=== PATIENT | female | born 1935 | race Caucasian/White ===

== ENCOUNTER 2018-10-16 00:50 | Emergency (ER) | payer OTHER ==
[~2018-10-16] VITALS: Ht 167.6 cm; Wt 83.9 kg
[2018-10-16 04:38] LABS: Basophils # (auto) 0 uL; Basophils % (auto) 0.3 % (0.0-2.0); Eosinophils # (auto) 0 uL; Eosinophils % (auto) 0.1 % (0.0-7.0); Hematocrit 40.5 % (36.0-46.0); Hemoglobin 13.9 g/dL (12.2-16.2); Lymphocytes # (auto) 0.5 uL; Lymphocytes % (auto) 8.3 % (10.0-50.0); Mean Corpuscular Hemoglobin 31.8 pg (28.0-32.0); Mean Corpuscular Hgb Conc. 34.3 g/dL (32.0-36.0); Mean Corpuscular Volume 92.5 fL (80.0-100.0); Monocytes # (auto) 0.8 uL; Neutrophils # (auto) 4.9 uL; Neutrophils % (auto) 78.3 % (37.0-80.0); Platelet Count (auto) 164 10^3/uL (140-450); Red Blood Cells 4.38 10^6/uL (4.0-5.20); Red Cell Distribution Width 14.1 % (11.8-14.3); White Blood Cell 6.3 10^3/uL (4.4-10.8)
[2018-10-16 04:53] LABS: INR 0.96 (0.9-1.15); Partial Thromboplastin Time 31.1 sec (23.78-33.04); Prothrombin Time 10.3 sec (9.27-12.13)
[2018-10-16 04:55] LABS: Alanine Aminotransferase 36 U/L (13-56); Albumin 3.3 g/dL (3.4-5.0); Anion Gap 7 (5-15); Aspartate Aminotransferase 34 U/L (15-37); Blood Urea Nitrogen 10 mg/dL (7-18); Calcium 8.4 mg/dL (8.5-10.1); Carbon Dioxide 26 mmol/L (21-32); Chloride 95 mmol/L (98-107); Glucose 115 mg/dL (74-106); Potassium 3.8 mmol/L (3.5-5.1); Sodium 128 mmol/L (136-145)
[2018-10-16 04:59] LABS: Alkaline Phosphatase 120 U/L (45-117); BUN/Creatinine Ratio 13.5; Bilirubin, Total 0.3 mg/dL (0.2-1.0); GFR African American 96 mL/min; GFR Non-African American 79 mL/min; Total Protein 7.1 g/dL (6.4-8.2)
[2018-10-16] MEDS ORDERED: SODIUM CHLORIDE 0.9% 1,000 ML IV ONE (06:15)
[2018-10-16] MEDS ORDERED: cloNIDine HCL 0.1 MG TAB PO ONE (06:45)
[2018-10-16] MEDS ORDERED: HYDROcodone-ACET 5/325MG TAB PO ONE (06:45)
[2018-10-16] MEDS ORDERED: ALBUTEROL SULF 2.5 MG/0.5ML(0.5%) NEB SOLN NEB ONE (06:45)
[2018-10-16] MEDS ORDERED: IPRATROPIUM BROM 0.5 MG/2.5ML INH SOL NEB ONE (06:45)
[2018-10-16 10:43] LABS: Urine Bacteria NONE SEEN /hpf (None Seen); Urine Blood Negative /uL (Negative); Urine Specific Gravity 1.008 (1.001-1.035); Urine WBC 1 /hpf (0 - 5)
[2018-10-16 20:11] VITALS: BP 145/73
== END 2018-10-16 20:40 | disposition short-term general hospital (02) ==
LOC: EDBD 00:50 → ER 00:50
DX: E87.1 Hypo-osmolality and hyponatremia (principal); E78.5 Hyperlipidemia, unspecified
CPT/HCPCS: 36415; 70450; 71045; 80053; 81001; 82962; 83880; 84443; 84484; 85025; 85379; 85610; 85730; 93005; 94640; 99285; J7030; J7611; J7644